=== PATIENT | male | born 1965 | race Caucasian/White ===

== ENCOUNTER 2024-09-18 09:19 | Outpatient (RCR) | payer MEDICARE, MEDICAID, SELFPAY ==
--- NOTE | 2024-09-11 14:34 | PCWOUND ---
WOCN NOTE Patient did not show up for appointment. Let Dr Olivas office know.
[2024-09-18 12:04] VITALS: BMI 32.1
--- NOTE | 2024-09-25 13:00 | PCWOUND ---
WOCN NOTE Patient did not show up for his appointment, no call was made by patient to cancel or reschedule.
== END 2024-10-31 08:11 | disposition home or self-care (01) ==
LOC: ANHWOC 09:19
PROVIDERS: PCP Internal Medicine; Visit Provider Internal Medicine
DX: S91.301A Unspecified open wound, right foot, initial encounter (principal)
CPT/HCPCS: 73610; 73630; 99214; G0463

== ENCOUNTER 2024-09-18 09:22 | Outpatient (CLI) | payer MEDICARE, MEDICAID, SELFPAY ==
--- NOTE | ~2024-09-18 | XR_ITS ---
Right foot Technique: AP, oblique, and lateral views were obtained. Clinical History: Wound Findings: No acute fracture or dislocation is seen. There is advanced degenerative change of the firs t tarsometatarsal joint, with more moderate degenerative change of the second and fifth tarsal metata rsal joints. There is moderate degenerative change of the naviculocuneiform articulations. Soft tissu es are unremarkable. Impression: Degenerative changes at the midfoot articulations, as above. Reviewed, dictated and finalized at location M. Impression: Degenerative changes at the midfoot articulations, as above.
--- NOTE | ~2024-09-18 | XR_ITS ---
Right ankle Technique: AP, oblique, and lateral views were obtained. Clinical History: Wound Findings: No acute fracture or dislocation is seen. Osseous alignment is anatomic. Ankle mortise and other visualized joint spaces are preserved. There is diffuse soft tissue swelling with ulcer or woun d at the lateral aspect of the ankle. Impression: No osseous or articular abnormality at the ankle. Soft tissue swelling with ulcer or wound at the lateral aspect of the ankle. Reviewed, dictated and finalized at location . Impression: No osseous or articular abnormality at the ankle. Soft tissue swelling with ulcer or wound at the lateral aspect of the ankle.
--- OUTSIDE RECORDS SUMMARY | 2024-09-18 10:23 | XMS_ITS | Data Portability ---
Author Organization [facility] [employer], Main Office Address [address] [place] [address] Assessment No assessment recorded. Plan of Treatment Reminders Order Date Submit Date Provider Last Modified By Organization Details Last Modified Time Details Appointments None recorded. Lab CBC [address] (Lab), [address] [place], [address], 3 08:32:27 CMP, serum or plasma [address] (Lab), [address] [place], [address], 3 08:32:27 TSH, serum or plasma [address] (Lab), [address] [place], [address], 3 08:32:27 urinalysis, complete [address] (Lab), [address] [place], [address], 3 08:32:28 PSA, serum or plasma [address] (Lab), [address] [place], [address], 3 08:32:28 HbA1c (hemoglobin A1c), blood 2022 023 [email or web address] [facility] (Lab), [address], [place], [address], 3 08:32:28 Referral orthopedic surgeon referral 2022 023 [email or web address] [facility], [address], [place], [address], 3 20:42:[address] referral 2022 023 Kelsey Ivy MD, [address] [place], [address], 3 20:42:57 Procedures None recorded. Surgeries None recorded. Imaging None recorded. Medication Orders furosemide 20 mg tablet 2022 023 [email or web address] 5 [facility] #[id number], [address], [place], [place], [id number], 3 16:36:29 triamcinolo ne acetonide 0.1 % topical cream 2022 023 [facility] #29780, [address], [place], [place], [id number], 3 16:35:13 sulfamethox azole 800 mg-trimetho prim 160 mg tablet 2022 023 [facility] #53493, [address], [place], [place], [id number], 3 16:35:12 Patient TargetsNo targets recorded. Patient InstructionsNo instructions recorded. 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 Referring Physician: [facility], Encounter Date: 12/14/2022 Orthopedic Surgeon Referral for Pain of left ankle joint Referring Physician: Crystal Berrios [facility], Encounter Date: 12/14/2022 Problems Name Problem SNOMED Code Status Onset Date Resolution Date Notes Provider Name and Address Organization Details Recorded Time Fracture of ankle 97191937 Active lt Not Available [facility] 3 15:12:44 Closed fracture of distal end of radius 07092422 Active Not Available [facility] 3 15:12:44 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 Not Available [facility] 3 15:12:44 Low back pain 378445601 Active Not Available [facility] 3 15:12:44 Depressiv e disorder 89497113 Active Not Available [facility] 3 15:12:44 Viral hepatitis C 71200712 Active Not Available [facility] 3 15:12:44 Hidradeni tis suppurati va 40150590 Active Not Available [facility] 3 15:12:44 Fracture of forearm 38416018 Active Not Available [facility] 3 15:12:44 Skin lesion 10603023 Active 2022 ALLA Joyner [address], [place], [address] , [employer] 3 16:24:39 Edema of lower extremity 930901550 Active 2022 ALLA Joyner [address], [place], [address] , [employer] [facility] 3 16:28:50 Pain of left ankle joint 66157609617 920646 Active 2022 ALLA Joyner [address], [place], [address] , [place] [employer] Employee Benefit Plans 3 16:29:42 Foot pain 79175797 Active 2022 ALLA Joyner [address], [place], [address] , [employer] [facility] 3 16:31:35 Increased frequency of urination 125133433 Active 2022 ALLA Joyner [address], [place], [address] , [facility] 3 16:34:25 Problem Notes None recorded. Medical Equipment None Reported. Allergies Allergen ID Allergen Name Allergen Category Reaction Reaction Severity Criticality Documentation Date Start Date Code Code System Note Provider Name and Address Organization Details Recorded Time 05067 Product containin g penicilli n (product) medicatio n hives Not available Not available 08/31/2022 12265 8001 SNOMED Not Available [facility] 3 15:13:42 52438 codeine medicatio n hives Not available Not available 08/31/2022 2670 RxNorm Not Available [facility] 3 15:13:42 Medications Name Sig Start Date Stop Date Status Note LastModified by Organization Details LastModified Time azithromyci n 250 mg tablet 07/27 completed Not Available Not Available Not Available hydrocodone 5 mg-acetamin ophen 325 mg tablet 07/27 completed Not Available Not Available Not Available hydromorpho ne 8 mg tablet active Not Available Not Available Not Available clonazepam 0.5 mg tablet TAKE 1 TABLET BY MOUTH TWICE DAILY active Not Available Not Available No t Available morphine ER 30 mg tablet,exte nded release active Not Available Not Available Not Available sulfamethox azole 800 mg-trimetho prim 160 mg tablet Take 1 tablet every 12 hours by oral route for 10 days. active Not Available Not Available No t Available triamcinolo ne acetonide 0.1 % topical cream APPLY A THIN LAYER TO THE AFFECTED AREA(S) BY TOPICAL ROUTE 2 TIMES PER DAY active Not Available Not Available No t Available baclofen 10 mg tablet active Not Available Not Available No t Available ranitidine 150 mg tablet Take 1 tablet twice a day by oral route as directed. 2012 active Not Available Not Available Not Avai lable albendazole 200 mg tablet TAKE 2 TABLETS BY MOUTH TWICE DAILY FOR 3 DAYS active Not Available Not Available No t Available omeprazole 20 mg capsule,del ayed release TAKE 1 CAPSULE BY MOUTH TWICE DAILY 30 MINUTES BEFORE MEALS active Not Available Not Available No t Available furosemide 20 mg tablet Take 1 tablet every day by oral route for 10 days. active Not Available Not Available No t Available methylpredn isolone 4 mg tablets in a dose pack 07/27 completed Not Available Not Available Not Available naproxen 500 mg tablet 07/27 completed Not Available Not Available Not Available Ventolin HFA 90 mcg/actuati on aerosol inhaler 07/27 completed Not Available Not Available Not Available escitalopra m 20 mg tablet TAKE 1 TABLET BY MOUTH EVERY DAY active Not Available Not Available No t Available Cymbalta 60 mg capsule,del ayed release Take 1 capsule every day by oral route as directed. 2012 active Not Available Not Available Not Avai lable morphine er 30mg 1 bid 2012 active Not Available Not Available Not Avai lable hydromorpho ne 8mg po q 6 hour prn 2012 active Not Available Not Available Not Avai lable oxycodone 10 mg tablet active Not Available Not Available Not Available Vitals Date Recorded Body height Body mass index (BMI) Body weight Body temperature Heart rate Oxygen saturation Oxygen saturation in Arterial blood by Pulse oximetry Systolic blood pressure Diastolic blood pressure Provider Name and Address Organization Details Last Updated DateTime 3 187.96 cm 33.5 kg/m2 032542. 61 g 97.4 [degF] 94 /min 97 % 97 % 132 mm[Hg] 70 mm[Hg] Karen isaacs CMA [employer] 16:10:02 Social History Question Answer Notes LastModified by Organizat ion Details LastModified Time Tobacco Smoking Status Current Every Day Smoker Karen Aguirre CMA [facility] [employer] 12/14/2022 16:11:25 Do You Have An Advance Directive? No [email or web address] Information not available 12/14/2022 What Is Your Level Of Alcohol Consumption? None [email or web address] Information not available 12/14/2022 What Is Your Level Of Caffeine Consumption? Moderate [email or web address] Information not available 12/14/2022 Are You Currently Employed? No Disability [email or web address] Information not available 12/14/2022 What Type Of Diet Are You Following? REGULAR [email or web address] Information not available 12/14/2022 What Is The Highest Grade Or Level Of School You Have Completed Or The Highest Degree You Have Received? [id number] [place] [address] Information not available 12/14/2022 Do You Use Your Seat Belt Or Car Seat Routinely? Yes [place] [address] Information not available 12/14/2022 At What Age Did You Start Smoking Tobacco? 17 [email or web address] Information not available 12/14/2022 How Much Tobacco Do You Smoke? 0.25 PPD [place] [address] Information not available 12/14/2022 Are You Currently In School? No [email or web address] [address] Information not available 12/14/2022 Do You Have Any Dietary Restrictions? No [email or web address] [address] Information not available 12/14/2022 Sex: Male Functional Status Question Answer Note LastModified by Organizat ion Details LastModified Time What is your exercise level? Occasional Information not available 12/14/2022 Mental Status None recorded. Family History Nothing Reported. Medical History No medical history recorded. Past Encounters Encounter ID Performer Location Encounter Start Date Encounter Closed Date Diagnosis/Indication Diagnosis SNOMED-CT Code Diagnosis ICD10 Code Diagnosis Note [id number] ALLA Joyner [facility] [address] [place] [address] 12/14/2022 15:57:31 12/14/2022 16:54:35 Skin lesion 77865499 L98.9 Widespread lesions of bilat forearms and lower legsPt concerned about parasitic infection; however, skin appears to be long-term self-infli cted injury from picking of skin. Edema of l ower extremity 178327547 R60.0 Elevate lower extremitie s, try not to keep legs dependent. Limit salt, pork, caffeine. Try otc compressio n socks. Work on appropriat e water intake. Take diuretics as directed. Pain of le ft ankle joint 5250034123 9088017 M25.572 Chronic, with recent exacerbati onPrevious surgical repairWill refer to ortho for furthere evaluation /tx Foot pain 79766537 M79.6 71 M79.672 New problemPai n may be d/t previous foot injury or edema.Will consider referral to podiatry Increased frequency of urination 640171095 R35.0 Will check labs to evaluated for prostate abnormalit y, diabetes, infection. Health Concerns Section Related Observation LastModified by Organization [employer] LastModified Time None Recorded Concern Status LastModified by Organization Details LastModified Time None Recorded Advance Directives Directive N: Payers Encounter Date Sequence Insurance Name Policy Number Policy [place] Covered Member ID [place] Member ID Guarantor Name 12/14/2022 1 [facility] - DOS ON OR AFTER 2020 - DUAL ELIGIBLE (MEDICARE REPLACEMENT/ ADVANTAGE - HMO) [id number] Jt Phillips [id number] Jt Phillips Notes Date Note Type Note Provider Name and Address Organization Details Recorded Time 12/14/2022 text/html 1. Pt in office to re-establish care. Pt states he was last seen here 10-12yrs ago. Pt states he is having issues with pain and swelling in feet and ankles. Pt states he has been taking ibuprofen 800mg BID, but no improvement. States sx suddenly got bad about 6 months ago.2. Pt states that he thinks he may need to have surgery on left ankle again. States a lot of pain and swelling.3. Pt states he crawled under a trailer doing a repair about 8 months ago. Pt states he thinks he got a parasite b/c he has sores and discoloration all over both forearms, lower legs. States sometimes it's itchy, but mostly feels like something is biting him. Pt states he feels like he has something coming out of his skin. Pt states he does pick/scratch at the lesions. Pt states previous provider gave him something for the sx, but he doesn't remember what it was. Crystal Berrios, HEALTH COUNSELOR [address] [facility] [facility] [address], [place], [address], [facility] 12/14/2022 18:28:38
--- OUTSIDE RECORDS SUMMARY | 2024-09-18 10:24 | XMS_ITS | Patient Health Record ---
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 Role Phone Jerman Eng Unavailable [phone] Reason For Referral No Information Medications Medication SIG (Take, Route, Fr equency, Duration) Notes Start Date End Date Status Cymbalta 60mg take 1 capsule 60MG ORAL 09/01/2012 Active Dilaudid 8mg take 1 tablet 8MG b ORAL 07/05/2012 0 Active MS Contin 30mg take 1 tablet 30MG ORAL 07/05/2012 Active Zantac 150mg take 1 tablet 150MG ORAL 07/05/2012 0 Active Problems Problem Type SNOMED Code ICD Code Onset Dates Problem Status W/U Status Risk Notes Problem Viral hepatitis type C (92330041) Unspecified viral hepatitis C without hepatic coma (070.70) 0 confirmed Harjinder Problem Nondependent mixed drug abuse (046297939) Other, mixed, or unspecified nondependent drug abuse, unspecified (305.90) 0 confirmed Harjinder Problem Chronic pain (66258921) Other chronic pain (338.29) 0 confirmed Harjinder Problem Impairment level: one eye: profound impairment: other eye: not specified (4049404) Impairment level not further specified (369.60) 0 confirmed Harjinder Problem Lumbago (287011733) Lumbago (724.2) 0 confirmed Harjinder Problem History of noncompliance with medication regimen (364653311) Personal history of noncompliance with medical treatment, presenting hazards to health (V15.81) 0 confirmed Harjinder Plan Of Treatment No Information Insurance Providers Payer Name Payer Address Payer Phone Subscriber Number Group Number Insured Name Patient Relationship to Insured Coverage Start Date Coverage End Date [place] [address] [address] [place] [address] [id number] Jt Phillips Self - patient is the insured
--- OUTSIDE RECORDS SUMMARY | 2024-09-18 10:25 | XMS_ITS | CONTINUITY OF CARE DOCUMENT ---
Author Name nilam demarco Address Unknown Organization [facility] Address [address] [place] [address] [address] [place] [address] Phone [phone] Care Team Providers Care Thread Winder Name Role Phone nilam demarco Unavailable Unavailable INSURANCE PROVIDERS Payer name Policy type / Coverage type [employer] red libertarian [employer] Medicaid 1 [id number]
--- OUTSIDE RECORDS SUMMARY | 2024-09-18 10:25 | XMS_ITS | Continuity of Care Document ---
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 [address] [place] [address], [address], [id number], . tel:[phone] Referring Provider: Remy Ordaz, [address] [place] [address], [address]. tel:[phone] Family History Family Member Type Diagnosis Age At Onset No Information Payers Payer name Insurance type Covered green party ID Authoriza tion(s) MEDICARE [id number] [facility] [id number] Social History Type Description Quantity Date Captured Comments Sex Male Smoking Status No Information Chief Complaint And Reason For Visit No Information Reason For Referral Reason For Referral No Information History Of Present Illness Encounter Date Complaint History Of Prese nt Illness No Information Functional Status Date Functional Assessmen t No Information Instructions Date Instruction Additional Infor mation No Information Assessments Type Assessment Date No Information Patient Care Teams Name Effective Dates (start - stop) Status Members No Information
--- OUTSIDE RECORDS SUMMARY | 2024-09-18 10:25 | XMS_ITS | Clinical Summary ---
Author Organization [facility] Address [address] [place] [address] Care Team Providers Care Deburrer Strip Name Role Phone Unavailable Primary Care Provider Unavailabl e Social History Tobacco Use Types Packs/Day Years Used Date Smoking Tobacco: Never Assessed Sex and Gender Information Value Date Recorded Sex Assigned at Not on file Legal Sex Male 7:27 PM CDT Gender Identity Not on file Sexual Orientation Not on file Plan of Treatment Health Maintenance Due Date Last Done Comments Colorectal Cancer Screening Colonoscopy (10 Years) 1967 Annual Physical 1970 Hepatitis C 1985 DTaP, Tdap and Td Vaccines ( 1 - Tdap) 1986 Hepatitis B Vaccines (1 of 3 - 19+ 3-dose series) 1986 Zoster Vaccines (1 of 2) 2017 COVID-19 Vaccine (2023-2 5 season) 2024 Influenza Adult (#1) 2024 Meningococcal B Vaccine Aged Out No l onger eligible based on patient's age to complete this topic Meningococcal Vaccine Aged Out No mike mark eligible based on patient's age to complete this topic Pneumococcal Vaccine: Pediat rics (0 to 5 Years) and At-Risk Patients (6 to 64 Years) Aged Out No longer eligible b ased on patient's age to complete this topic RSV Immunizations Under 20 Months Aged Out No longer eligible based on patient's age to complete this topic Advance Directives Documents on File Type Date Recorded 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
== END 2024-09-18 09:23 | disposition home or self-care (01) ==
LOC: ANHIMG 09:23
PROVIDERS: PCP Internal Medicine; Visit Provider Internal Medicine
DX: S91.301A Unspecified open wound, right foot, initial encounter (principal); X58.XXXA Exposure to other specified factors, initial encounter
CPT/HCPCS: 73610; 73630

== ENCOUNTER 2024-10-04 14:31 | Outpatient (CLI) | payer MEDICARE, MEDICAID, SELFPAY ==
--- OUTSIDE RECORDS SUMMARY | 2024-10-04 14:35 | XMS_ITS | Patient Health Record ---
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 Role Phone Jerman Eng Unavailable [phone] Reason For Referral No Information Medications Medication [...] Risk Notes Problem Viral hepatitis type C (42823672) Unspecified viral hepatitis C without hepatic coma (070.70) 0 confirmed Harjinder Problem Nondependent mixed drug abuse (550658728) Other, mixed, or unspecified nondependent drug abuse, unspecified (305.90) 0 confirmed Harjinder Problem Chronic pain (36141938) Other chronic pain (338.29) 0 confirmed Harjinder Problem Impairment level: one eye: profound impairment: other eye: not specified (8853820) Impairment level not further specified (369.60) 0 confirmed Harjinder Problem Lumbago (050622718) Lumbago (724.2) 0 confirmed Harjinder Problem History of noncompliance with medication regimen (698546529) Personal history of noncompliance with medical treatment, presenting hazards to health (V15.81) 0 confirmed Harjinder Plan Of Treatment No Information Insurance Providers Payer Name Payer Address Payer Phone Subscriber Number Group Number Insured Name Patient Relationship to Insured Coverage Start Date Coverage End Date [place] [address] [address] [place] [address] [id number] Jt Phillips Self - patient is the insured
--- OUTSIDE RECORDS SUMMARY | 2024-10-04 14:35 | XMS_ITS | Data Portability ---
Author Organization [facility] [employer], Main Office Address [address] [place] [address] Assessment No assessment recorded. Plan of Treatment Reminders Order Date Submit Date Provider Last Modified By Organization Details Last Modified Time Details Appointments None recorded. Lab CBC [address] (Lab), [address] [place], [address], 3 08:32:27 CMP, serum or plasma [address] (Lab), [address] [place], [address], 3 08:32:27 TSH, serum or plasma [address] (Lab), [address] [place], [address], 3 08:32:27 urinalysis, complete [address] (Lab), [address] [place], [address], 3 08:32:28 PSA, serum or plasma [address] (Lab), [address] [place], [address], 3 08:32:28 HbA1c (hemoglobin A1c), blood 2022 023 [email or web address] [facility] (Lab), [address], [place], [address], 3 08:32:28 Referral orthopedic surgeon referral 2022 023 [email or web address] [facility], [address] [facility] [address], [place], [address], 3 20:42:[address] referral 2022 023 [email or web address] Kelsey Ivy MD, [address] [place], [address], 3 20:42:57 Procedures None recorded. Surgeries None recorded. Imaging None recorded. Medication Orders furosemide 20 mg tablet 2022 023 [email or web address] 5 [facility]55, [address], [place], [place], [address], 3 16:36:29 triamcinolo ne acetonide 0.1 % topical cream 2022 023 [facility] #50954, [address], [place], [place], [address], 3 16:35:13 sulfamethox azole 800 mg-trimetho prim 160 mg tablet 2022 023 [facility] #30909, [address], [place], [place], [address], 3 16:35:12 Patient TargetsNo targets recorded. Patient InstructionsNo instructions recorded. 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 Jointer Machine Referral for S kin lesion Referring Physician: [facility] Berrios [facility], Encounter Date: 12/14/2022 Orthopedic Surgeon Referral for Pain of left ankle joint Referring Physician: Crystal Berrios Family Medicine, Encounter Date: 12/14/2022 Problems Name Problem SNOMED Code Status Onset Date Resolution Date Notes Provider Name and Address Organization Details Recorded Time Fracture of ankle 99253588 Active lt Not Available [facility] 3 15:12:44 Closed fracture of distal end of radius 97489387 Active Not Available [facility] 3 15:12:44 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 Not Available [facility] 3 15:12:44 Low back pain 554611966 Active Not Available [facility] 3 15:12:44 Depressiv e disorder 56432507 Active Not Available [facility] 3 15:12:44 Viral hepatitis C 46096651 Active Not Available [facility] 3 15:12:44 Hidradeni tis suppurati va 88186080 Active Not Available [facility] 3 15:12:44 Fracture of forearm 26779672 Active Not Available [facility] 3 15:12:44 Skin lesion 37594011 Active 2022 ALLA Joyner [address], [place], [address] , [employer] 3 16:24:39 Edema of lower extremity 987726788 Active 2022 ALLA Joyner [address], [address], [place], [address] , [employer] [facility] 3 16:28:50 Pain of left ankle joint 66039022367 658839 Active 2022 ALLA Joyner [address], [address], [place], [address] , [place] [employer] 3 16:29:42 Foot pain 69992154 Active 2022 ALLA Joyner [address], [place], [address] , [employer] [facility] 3 16:31:35 Increased frequency of urination 506488895 Active 2022 ALLA Joyner [address], [place], [address] , [facility] 3 16:34:25 Problem Notes None recorded. Medical Equipment None Reported. Allergies Allergen ID Allergen Name Allergen Category Reaction Reaction Severity Criticality Documentation Date Start Date Code Code System Note Provider Name and Address Organization Details Recorded Time 77853 Product containin g penicilli n (product) medicatio n hives Not available Not available 08/31/2022 29978 8001 SNOMED Not Available [facility] 3 15:13:42 62816 codeine medicatio n hives Not available Not available 08/31/2022 2670 RxNorm Not Available [facility] 3 15:13:42 Medications Name Sig Start Date [...] Updated DateTime 3 187.96 cm 33.5 kg/m2 743622. 61 g 97.4 [degF] 94 /min 97 % 97 % 132 mm[Hg] 70 mm[Hg] Karen isaacs CMA [employer] 16:10:02 Social History Question Answer Notes LastModified by Organizat ion Details LastModified Time Tobacco Smoking Status Current Every Day Smoker Karen Aguirre CMA [facility] [employer] 12/14/2022 16:11:25 Do You Have An Advance Directive? No [email or web address] Information not available 12/14/2022 What Is Your Level Of Alcohol Consumption? None [email or web address] Information not available 12/14/2022 What Is Your Level Of Caffeine Consumption? Moderate [email or web address] Information not available 12/14/2022 Are You Currently Employed? No Disability [email or web address] Information not available 12/14/2022 What Type Of Diet Are You Following? REGULAR [email or web address] Information not available 12/14/2022 What Is The Highest Grade Or Level Of School You Have Completed Or The Highest Degree You Have Received? [id number] [place] [address] Information not available 12/14/2022 Do You Use Your Seat Belt Or Car Seat Routinely? Yes [place] [address] Information not available 12/14/2022 At What Age Did You Start Smoking Tobacco? 17 [email or web address] Information not available 12/14/2022 How Much Tobacco Do You Smoke? 0.25 PPD [place] [address] Information not available 12/14/2022 Are You Currently In School? No [place] [address] Information not available 12/14/2022 Do You Have Any Dietary Restrictions? No [place] [address] Information not available 12/14/2022 Sex: Male Functional Status Question Answer Note LastModified by Organizat ion Details LastModified Time What is your exercise level? Occasional [email or web address] Information not available 12/14/2022 Mental Status None recorded. Family History Nothing Reported. Medical History No medical history recorded. Past Encounters Encounter ID Performer Location Encounter Start Date Encounter Closed Date Diagnosis/Indication Diagnosis SNOMED-CT Code Diagnosis ICD10 Code Diagnosis Note [id number] ALLA Joyner [facility] Primary Care [address] [place] [address] 12/14/2022 15:57:31 12/14/2022 16:54:35 Skin lesion 45100065 L98.9 Widespread lesions of bilat forearms and lower legsPt concerned about parasitic infection; however, skin appears to be long-term self-infli cted injury from picking of skin. Edema of l ower extremity 945303951 R60.0 Elevate lower extremitie s, try not to keep legs dependent. Limit salt, pork, caffeine. Try otc compressio n socks. Work on appropriat e water intake. Take diuretics as directed. Pain of le ft ankle joint 8070815973 8890887 M25.572 Chronic, with recent exacerbati onPrevious surgical repairWill refer to ortho for furthere evaluation /tx Foot pain 50074972 M79.6 71 M79.672 New problemPai n may be d/t previous foot injury or edema.Will consider referral to podiatry Increased frequency of urination 515393064 R35.0 Will check labs to evaluated for prostate abnormalit y, diabetes, infection. Health Concerns Section Related Observation LastModified by Organization [employer] LastModified Time None Recorded Concern Status LastModified by Organization Details LastModified Time None Recorded Advance Directives Directive N: Payers Encounter Date Sequence Insurance Name Policy Number Policy [place] Covered Member ID [place] Member ID Guarantor Name 12/14/2022 1 [facility] - DOS ON OR AFTER 2020 - DUAL ELIGIBLE (MEDICARE REPLACEMENT/ ADVANTAGE - HMO) [id number] Jt Phillips [id number] Jt Phillips Notes Date Note Type Note [...] doesn't remember what it was. Crystal Berrios, AP OPERATOR [address] [facility] [facility] [address], [place], [address], [facility] 12/14/2022 18:28:38
--- OUTSIDE RECORDS SUMMARY | 2024-10-04 14:35 | XMS_ITS | Continuity of Care Document ---
Author Organization [facility] Address [address] [place] [address] Phone Care Team Providers Care Mobility Developer Name Role Phone Remy Ordaz MD Unavailable Unavailable Advance Directives Directive Yes / No Effective Date File Name No Information Encounters Encounter Description Practice Location Reason(s) For Visit Diagnoses Date Provider Providers Copied on Encounter [facility], [address], [place], [place], [id number], tel:[phone] [facility] Ne No Information Orlin Alberto. [address] [place] [address], [address], [id number], . tel:[phone] Referring Provider: Remy Ordaz, [address] [place] [address], [address]. tel:[phone] Family History Family Member Type Diagnosis Age At Onset No Information Payers Payer name Insurance type Covered libertarian ID Authoriza tion(s) MEDICARE [id number] [place] [facility] [id number] Social History Type Description Quantity Date Captured [...]
--- OUTSIDE RECORDS SUMMARY | 2024-10-04 14:35 | XMS_ITS | CONTINUITY OF CARE DOCUMENT ---
Author Name nilam demarco Address Unknown Organization [facility] Address [address] [place] [address] [address] [place] [address] Phone [phone] Care Team Providers Care Mowing Machine Operator Name Role Phone nilam demarco Unavailable Unavailable INSURANCE PROVIDERS Payer name Policy type / Coverage type [place] red libertarian ID HEALTHCARE AND FAMILY SERVICES Medicaid 1 [id number]
--- OUTSIDE RECORDS SUMMARY | 2024-10-04 14:35 | XMS_ITS | Clinical Summary ---
Author Organization [facility] Address [address] [place] [address] Care Team Providers Care Lathe Turner Name Role Phone Unavailable Primary Care Provider [...] Documents on File Type Date Recorded Patient Technical Implementation Lead Expl anation Advance Directives and Living Will 02/20/2015 12:00 AM ADV[employer]ED DIRECTIVES Advance Directives and Living Will 12/27/2013 12:00 AM ADVANCED DIRECTIVES
--- NOTE | 2024-10-04 17:49 | P.PCNPFT_ITS ---
PFT Procedure Performed PFT Procedure Performed Plethysmography (Lung Vol) Diffusing Cap (DLCO) Flow Vol Loop Spirometry w/o Bronchodil PFT Interpretation This is a pulmonary function test with spirometry, plethysmography and diffusing capacity. The test was performed and results interpreted in accordance with the 2019 and 2005 ATS/ERS Task Force guidelines respectively using the Global Lung Function Initiative-2012 reference equations. Patient demonstrated good effort and cooperation. Reproducibility criteria were met. The quality of the spirometry maneuver was Grade A. Findings: Spirometry: There is decreased maximal expiratory airflow at all lung volumes. The contour the inspiratory flow tracing is truncated. The FVC is 4.72 L, 87% predicted. The FEV1 is 2.72 L, 65% predicted. The FEV1: FVC ratio is 58%. Plethysmography: The total lung capacity is 7.83 L, 101% predicted. The func tional residual capacity is 4.14 L, 101% predicted. The residual volume is 3.11 L, 130% predicted. Diffusing capacity: The diffusing capacity unadjusted for hemoglobin and carboxyhemoglobin is 15.6, 51% predicted. The diffusing capacity adjusted for alveolar volume at 2.43, 59% predicted. Impression: There is a moderate obstructive abnormality. The lung volumes are normal. The diffusing capacity unadjusted for hemoglobin and carboxyhemoglobin is moderately decreased and remained moderately decreased when adjusted for alveolar volume. There are no prior studies for comparison
== END 2024-10-04 14:32 | disposition home or self-care (01) ==
PROVIDERS: PCP Internal Medicine; Visit Provider Internal Medicine
DX: R06.02 Shortness of breath (principal); M79.604 Pain in right leg; F17.200 Nicotine dependence, unspecified, uncomplicated; R94.2 Abnormal results of pulmonary function studies
CPT/HCPCS: 94375; 94726; 94729

== ENCOUNTER 2024-10-09 14:13 | Outpatient (CLI) | payer MEDICARE, MEDICAID, SELFPAY ==
--- NOTE | ~2024-10-09 | CT_ITS ---
EXAMINATION: CT lung screening DATE: 10/09/2024 14:28 INDICATION: nicotine dependence TECHNIQUE: Computed tomography (CT) of the chest was performed without intravenous contrast. Addition al 3D reconstructions utilizing coronal maximum intensity projection (MIP) were performed. Automated exposure control and iterative reconstruction technique were employed. The dose-length product was 21 4.51 mGy-cm. COMPARISON: None FINDINGS: Mild to moderate emphysema. Small calcified right upper lobe nodule consistent with old granulomatous disease. A few scattered in bilateral <3 mm noncalcified nodules. No pneumonia, pulmonary edema or p leural effusion. Heart size is normal. No pericardial effusion. Small amount of atherosclerotic coron chin[place] artery calcified lesion. Thoracic aorta is normal in caliber. No pathologically enlarged thoracic lymphadenopathy. Visualized upper abdomen is unremarkable. Moderate thoracic spondylosis with chroni c appearing mild anterior wedging at T7. IMPRESSION: 1. Lung-RADS category 2: Benign appearance or behavior. Continue annual screening with noncontrast lo w-dose chest CT in 12 months. Reviewed, dictated and finalized at location B. IMPRESSION: 1. Lung-RADS category 2: Benign appearance or behavior. Continue annual screeni ng with noncontrast low-dose chest CT in 12 months.
--- NOTE | ~2024-10-09 | US_ITS ---
EXAMINATION: US venous doppler [facility] DATE: 10/09/2024 15:00 INDICATION: Bilateral leg pain and swelling TECHNIQUE: Grayscale ultrasound images without and with compression and Doppler ultrasound images of the bilateral lower extremity veins were obtained. COMPARISON: None. FINDINGS: The visualized portions of right common femoral vein, profunda (deep) femoral vein, femoral vein, pop liteal vein, peroneal veins, posterior tibial veins, and greater saphenous vein outflow are patent. The visualized portions of left common femoral vein, profunda femoral vein, femoral vein, popliteal v ein, peroneal veins, posterior tibial veins, and greater saphenous vein outflow are patent. Morphologically benign lymph nodes are incidentally noted within the right groin. IMPRESSION: 1. No deep venous thrombosis. Reviewed, dictated and finalized at location A.
--- OUTSIDE RECORDS SUMMARY | 2024-10-09 15:55 | XMS_ITS | CONTINUITY OF CARE DOCUMENT ---
Author Name nilam demarco Address Unknown Organization [facility] Address [address] [place] [address] [address] [place] [address] Phone [phone] Care Team Providers Care It Infrastructure Architect Name Role Phone nilam demarco Unavailable Unavailable INSURANCE PROVIDERS Payer name Policy type / Coverage type [place] red libertarian ID HEALTHCARE AND FAMILY SERVICES Medicaid 1 [id number]
--- OUTSIDE RECORDS SUMMARY | 2024-10-09 15:55 | XMS_ITS | Continuity of Care Document ---
Author Organization [facility] Address [address] [place] [address] Phone Care Team Providers Care Pulp Maker Name Role Phone Remy Ordaz MD Unavailable Unavailable Advance Directives Directive Yes / No Effective Date File Name No Information Encounters Encounter Description Practice Location Reason(s) For Visit Diagnoses Date Provider Providers Copied on Encounter [facility], [address], [place], [place], [address], tel:[phone] [facility] Ne No Information Orlin Alberto. [address] [place] [address], [address], [id number], . tel:[phone] Referring Provider: Remy Ordaz, [address] [place] [address], [address]. tel:[phone] Family History Family Member Type Diagnosis Age At Onset No Information Payers Payer name Insurance type Covered green party ID Authoriza tion(s) MEDICARE [id number] [place] [facility] [id number] Social History Type Description Quantity Date Captured [...]
--- OUTSIDE RECORDS SUMMARY | 2024-10-09 15:55 | XMS_ITS | Data Portability ---
Author Organization [facility] [employer], Main Office Address [address] [place] [address] Assessment No assessment recorded. Plan of Treatment Reminders Order Date Submit Date Provider Last Modified By Organization Details Last Modified Time Details Appointments None recorded. Lab CBC [address] (Lab), [address] [place], [address], 3 08:32:27 CMP, serum or plasma [address] (Lab), [address] [place], [address], 3 08:32:27 TSH, serum or plasma [address] (Lab), [address] [place], [address], 3 08:32:27 urinalysis, complete [address] (Lab), [address] [place], [address], 3 08:32:28 PSA, serum or plasma [address] (Lab), [address] [place], [address], 3 08:32:28 HbA1c (hemoglobin A1c), blood 2022 023 [email or web address] [facility] (Lab), [address], [place], [address], 3 08:32:28 Referral orthopedic surgeon referral 2022 023 [email or web address] [facility], [address] [facility] [address], [place], [address], 3 20:42:[address] referral 2022 023 [email or web address] Kelsey Ivy MD, [address] [place], [address], 3 20:42:57 Procedures None recorded. Surgeries None recorded. Imaging None recorded. Medication Orders furosemide 20 mg tablet 2022 023 [email or web address] 5 [facility]80627, [address], [place], [place], [address], 3 16:36:29 triamcinolo ne acetonide 0.1 % topical cream 2022 023 [facility]73821, [address], [place], [place], [address], 3 16:35:13 sulfamethox azole 800 mg-trimetho prim 160 mg tablet 2022 023 [facility] #57036, [address], [place], [place], [address], 3 16:35:12 Patient TargetsNo targets recorded. Patient InstructionsNo instructions recorded. 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 Quality Assurance Analyst Referral for S kin lesion Referring Physician: Crystal Berrios [facility], Encounter Date: 12/14/2022 Orthopedic Surgeon Referral for Pain of left ankle joint Referring Physician: Crystal Berrios [facility], Encounter Date: 12/14/2022 Problems Name Problem SNOMED Code Status Onset Date Resolution Date Notes Provider Name and Address Organization Details Recorded Time Fracture of ankle 10764382 Active lt Not Available [facility] 3 15:12:44 Closed fracture of distal end of radius 00425952 Active Not Available [facility] 3 15:12:44 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 Not Available [facility] 3 15:12:44 Low back pain 191707878 Active Not Available [facility] 3 15:12:44 Depressiv e disorder 84375197 Active Not Available [facility] 3 15:12:44 Viral hepatitis C 36689859 Active Not Available [facility] 3 15:12:44 Hidradeni tis suppurati va 19785052 Active Not Available [facility] 3 15:12:44 Fracture of forearm 23089963 Active Not Available [facility] 3 15:12:44 Skin lesion 40830131 Active 2022 ALLA Joyner [address], [place], [address] , [employer] 3 16:24:39 Edema of lower extremity 536504257 Active 2022 ALLA Joyner [address], [place], [address] , [employer] [facility] 3 16:28:50 Pain of left ankle joint 20777325816 014067 Active 2022 ALLA Joyner [address], [place], [address] , [place] [employer] 3 16:29:42 Foot pain 69122453 Active 2022 ALLA Joyner [address], [place], [address] , [employer] [facility] 3 16:31:35 Increased frequency of urination 313476289 Active 2022 ALLA Joyner [address], [place], [address] , [facility] 3 16:34:25 Problem Notes None recorded. Medical Equipment None Reported. Allergies Allergen ID Allergen Name Allergen Category Reaction Reaction Severity Criticality Documentation Date Start Date Code Code System Note Provider Name and Address Organization Details Recorded Time 50118 Product containin g penicilli n (product) medicatio n hives Not available Not available 08/31/2022 02345 8001 SNOMED Not Available [facility] 3 15:13:42 67606 codeine medicatio n hives Not available Not available 08/31/2022 2670 RxNorm Not Available [facility] 3 15:13:42 Medications Name Sig Start Date [...] Updated DateTime 3 187.96 cm 33.5 kg/m2 998647. 61 g 97.4 [degF] 94 /min 97 % 97 % 132 mm[Hg] 70 mm[Hg] Karen isaacs CMA [facility] 16:10:02 Social History Question Answer Notes LastModified by Organizat ion Details LastModified Time Tobacco Smoking Status Current Every Day Smoker Karen Aguirre CMA [facility] 12/14/2022 16:11:25 Do You Have An Advance Directive? No [email or web address] Information not available 12/14/2022 What Is Your Level Of Alcohol Consumption? None [email or web address] Information not available 12/14/2022 What Is Your Level Of Caffeine Consumption? Moderate [email or web address] Information not available 12/14/2022 Are You Currently Employed? No Disability [email or web address] Information not available 12/14/2022 What Type Of Diet Are You Following? REGULAR [email or web address] Information not available 12/14/2022 What Is The Highest Grade Or Level Of School You Have Completed Or The Highest Degree You Have Received? [id number] [place] [address] Information not available 12/14/2022 Do You Use Your Seat Belt Or Car Seat Routinely? Yes [place] [address] Information not available 12/14/2022 At What Age Did You Start Smoking Tobacco? 17 [email or web address] Information not available 12/14/2022 How Much Tobacco Do You Smoke? 0.25 PPD [place] [address] Information not available 12/14/2022 Are You Currently In School? No [place] [address] Information not available 12/14/2022 Do You Have Any Dietary Restrictions? No [place] [address] Information not available 12/14/2022 Sex: Male Functional Status Question Answer Note LastModified by Organizat ion Details LastModified Time What is your exercise level? Occasional [email or web address] Information not available 12/14/2022 Mental Status None recorded. Family History Nothing Reported. Medical History No medical history recorded. Past Encounters Encounter ID Performer Location Encounter Start Date Encounter Closed Date Diagnosis/Indication Diagnosis SNOMED-CT Code Diagnosis ICD10 Code Diagnosis Note [id number] ALLA Joyner [facility] Primary Care [address] [place] [address] 12/14/2022 15:57:31 12/14/2022 16:54:35 Skin lesion 00272428 L98.9 Widespread lesions of bilat forearms and lower legsPt concerned about parasitic infection; however, skin appears to be long-term self-infli cted injury from picking of skin. Edema of l ower extremity 708066275 R60.0 Elevate lower extremitie s, try not to keep legs dependent. Limit salt, pork, caffeine. Try otc compressio n socks. Work on appropriat e water intake. Take diuretics as directed. Pain of le ft ankle joint 3721150263 5564109 M25.572 Chronic, with recent exacerbati onPrevious surgical repairWill refer to ortho for furthere evaluation /tx Foot pain 35913118 M79.6 71 M79.672 New problemPai n may be d/t previous foot injury or edema.Will consider referral to podiatry Increased frequency of urination 431122723 R35.0 Will check labs to evaluated for prostate abnormalit y, diabetes, infection. Health Concerns Section Related Observation LastModified by Organization [employer] LastModified Time None Recorded Concern Status LastModified by Organization Details LastModified Time None Recorded Advance Directives Directive N: Payers Encounter Date Sequence Insurance Name Policy Number Policy [place] Covered Member ID [place] Member ID Guarantor Name 12/14/2022 1 [facility] - DOS ON OR AFTER 2020 - DUAL ELIGIBLE (MEDICARE REPLACEMENT/ ADVANTAGE - HMO) [id number] Jt Phillips [id number] Jt Phillips Notes Date Note Type Note [...] doesn't remember what it was. Crystal Berrios, STATISTICIAN MATHEMATICAL [address] [facility], [facility] [address], [place], [address], [facility] 12/14/2022 18:28:38
--- OUTSIDE RECORDS SUMMARY | 2024-10-09 15:55 | XMS_ITS | Clinical Summary ---
Author Organization [facility] Address [address] [place] [address] Care Team Providers Care Insurance Licensing Supervisor Name Role Phone Unavailable Primary Care Provider [...] Vaccines (1 of 2) 2017 COVID-19 Vaccine ( - 2023-2 5 season) 2024 Meningococcal B Vaccine Aged Out No l onger eligible based on patient's age to complete this topic Meningococcal Vaccine Aged Out No mike mrak eligible based on patient's age to complete [...] Documents on File Type Date Recorded Patient Canvas Marker Expl anation Advance Directives and Living Will 02/20/2015 12:00 AM ADVANCED DIRECTIVES Advance Directives and Living Will 12/27/2013 12:00 AM ADVANCED DIRECTIVES
== END 2024-10-09 14:14 | disposition home or self-care (01) ==
PROVIDERS: PCP Internal Medicine; Visit Provider Internal Medicine
DX: M79.605 Pain in left leg (principal); M79.604 Pain in right leg; F17.210 Nicotine dependence, cigarettes, uncomplicated
CPT/HCPCS: 71271; 93970